=== PATIENT | male | born 1990 | race Hispanic/Latino ===

== ENCOUNTER 2018-03-18 14:24 | Emergency (ER) | payer SELFPAY ==
--- NOTE | 2018-03-18 14:34 | ED.PDOC ---
History of Present Illness - General Chief Complaint: General Stated Complaint: right flank pain Time Seen by Provider: 03/18/18 14:31 Source: patient Exam Limitations: no limitations - History of Present Illness Initial Comments: Trey Glavan 27 y/o male stated that he had sudden onset of stabbing right flank pain which had been constant about an hour ago with dark straw colored urine.Denies diarrhea,felt nauseated due to pain,no history of back injury.Denies chronic medical problem.No history of nephrolithiasis. Timing/Duration: just prior to arrival Quality: steady, stabbing Onset Location: right flank Radiation: none Activites at Onset: none Prior abdominal problems: none Sexual intercourse history: single partner Improving Factors: nothing Worsening Factors: nothing Associated Symptoms: denies symptoms Allergies/Adverse Reactions: Allergies NO KNOWN ALLERGY Allergy (Verified 03/18/18 14:35) Home Medications: Ambulatory Orders Acetamin W/Cod #3 Tab [Tylenol w/CODEINE #3] 1 ea PO Q6HRS PRN #10 tab 03/18/18 Ketorolac Tromethamine [Toradol Tabs] 10 mg PO TID #10 tab 03/18/18 Tamsulosin HCl [Flomax] 0.4 mg PO DAILY #5 cap 03/18/18 Review of Systems - Review of Systems Constitutional: States: no symptoms reported EENTM: States: no symptoms reported Respiratory: States: no symptoms reported Gastrointestinal/Abdominal: States: see HPI Genitourinary: States: see HPI All other Systems: Reviewed and Negative, No Change from Baseline Past Medical History (General) - Patient Medical History Hx Seizures: No Hx Asthma: No Surgical History: no surgical history - Social History Hx Tobacco Use: Yes Hx Physical Abuse: No Hx Emotional Abuse: No Family Medical History - Family History Mother Family History: Unknown Physical Exam - Physical Exam General Appearance: Anxious, No apparent distress, Other - in pain Eyes, Ears, Nose, Throat Exam: normal ENT inspection Neck: non-tender, full range of motion, supple Cardiovascular/Respiratory: regular rate, rhythm, no M/R/G, normal peripheral pulses Gastrointestinal/Abdominal: normal bowel sounds, non tender, soft, no organomegaly Back Exam: no vertebral tenderness, CVA tenderness (R) Extremity: non-tender, no pedal edema, no calf tenderness Neurologic: alert, oriented x 3 Progress - Progress Progress: 03/18/18 14:43 Vital Signs - 8 hr 03/18/18 14:30 Temperature 97.6 F Pulse Rate [ 81 pulse ox] Respiratory 18 Rate Blood Pressure 149/95 [left arm] O2 Sat by Pulse 100 Oximetry - Results/Orders Results/Orders: 03/18/18 16:04 Sodium Chloride 0.9% 500Ml [NS 500ml] 500 ml IVS ONCE Laboratory Results - last 24 hr 03/18/18 03/18/18 03/18/18 14:40 14:40 14:53 WBC 7.4 RBC 5.53 Hgb 15.9 Hct 47.4 MCV 85.7 MCH 28.8 MCHC 33.6 RDW 14.3 Plt Count 291 MPV 8.1 Absolute Neuts (auto) 5.20 Absolute Lymphs (auto) 1.70 Absolute Monos (auto) 0.40 Absolute Eos (auto) 0.10 Absolute Basos (auto) 0.10 Neutrophils % 69.8 Lymphocytes % 22.7 Monocytes % 4.9 Eosinophils % 1.9 Basophils % 0.7 Sodium 141 Potassium 3.3 L Chloride 103 Carbon Dioxide 25 Anion Gap 16.3 BUN 18 Creatinine 1.23 BUN/Creatinine Ratio 14.6 Random Glucose 141 H Serum Osmolality 285.5 Calcium 10.2 Urine Color Maranda Urine Appearance Turbid Urine pH 7.0 Ur Specific [place] 1.025 Urine Protein 100 H Urine Glucose (UA) Negative Urine Ketones 15 H Urine Blood Large H Urine Nitrite Negative Urine Bilirubin Negative Urine Urobilinogen 0.2 Ur Leukocyte Esterase Negative Urine RBC Tntc H Urine WBC 3-5 H Ur Epithelial Cells 1-3 Calcium Oxalate Crystal 1+ Urine Bacteria 1+ Urine Opiates Screen Urine Barbiturates Ur Phencyclidine Scrn U Amphetamin/Meth Scrn U Benzodiazepines Scrn U Cocaine Metab Screen U Cannabinoids Screen 03/18/18 14:53 WBC RBC Hgb Hct MCV MCH MCHC RDW Plt Count MPV Absolute Neuts (auto) Absolute Lymphs (auto) Absolute Monos (auto) Absolute Eos (auto) Absolute Basos (auto) Neutrophils % Lymphocytes % Monocytes % Eosinophils % Basophils % Sodium Potassium Chloride Carbon Dioxide Anion Gap BUN Creatinine BUN/Creatinine Ratio Random Glucose Serum Osmolality Calcium Urine Color Urine Appearance Urine pH Ur Specific [place] Urine Protein Urine Glucose (UA) Urine Ketones Urine Blood Urine Nitrite Urine Bilirubin Urine Urobilinogen Ur Leukocyte Esterase Urine RBC Urine WBC Ur Epithelial Cells Calcium Oxalate Crystal Urine Bacteria Urine Opiates Screen Negative Urine Barbiturates Negative Ur Phencyclidine Scrn Negative U Amphetamin/Meth Scrn Negative U Benzodiazepines Scrn Negative U Cocaine Metab Screen Negative U Cannabinoids Screen Negative - EKG/XRAY/CT CT Ordered: Yes - abd/p-2mm ureteral calculus right UVJ Departure - Departure Clinical Impression: Flank pain, acute, Right ureteral calculus Time of Disposition: 16:26 Disposition: Discharge to Home or Self Care Condition: Good Departure Forms: ED Discharge - Pt. Copy, Patient Portal Self Enrollment Instructions: DI for Kidney Stones, Kidney Stones -- Adult, Kidney Stones ( Alternative Therapy) Diet: other - increase oral fluid intake Referrals: Jerome Hartman MD [Primary Care Provider] - 1-2 Weeks Prescriptions: Acetamin W/Cod #3 Tab [Tylenol w/CODEINE #3] 1 ea PO Q6HRS PRN #10 tab PRN Reason: Pain Ketorolac Tromethamine [Toradol Tabs] 10 mg PO TID #10 tab Tamsulosin HCl [Flomax] 0.4 mg PO DAILY #5 cap Home Medications: Ambulatory Orders Acetamin W/Cod #3 Tab [Tylenol w/CODEINE #3] 1 ea PO Q6HRS PRN #10 tab 03/18/18 Ketorolac Tromethamine [Toradol Tabs] 10 mg PO TID #10 tab 03/18/18 Tamsulosin HCl [Flomax] 0.4 mg PO DAILY #5 cap 03/18/18 Additional Instructions: Return to ER as needed;follow up with primary Md 19 march 2018
[2018-03-18] MEDS: LACTATED RINGERS 1,000 ML IVS ONE (14:40)
[2018-03-18] MEDS: TAMSULOSIN 0.4 MG CAP PO ONE (14:40)
[2018-03-18] MEDS: KETOROLAC TROMETHAMINE INJ 30 MG/ML VIAL IV ONE (14:41)
[2018-03-18] MEDS: MORPHINE SULFATE INJ 10 MG/ML VIAL IV ONE ×2 (14:58→15:32)
[2018-03-18 15:00] VITALS: TEMP 97.6
[2018-03-18] MEDS: PROMETHAZINE HCL INJ 25 MG/ML VIAL IM ONE (15:00)
--- NOTE | 2018-03-18 15:06 | CT ---
EXAM DESCRIPTION: Abdoment/Pelvis w/o Contrast CLINICAL HISTORY: 27 years Male, right flank pain COMPARISON: None available. TECHNIQUE: Contiguous 3 mm axial images were obtained from the lung bases to the level of the proximal femora without the administration of intravenous or oral contrast. Sagittal and coronal reconstructions were reviewed. FINDINGS: Limited evaluation of the solid organs due to the lack of intravenous contrast. THORAX: The imaged lower thorax demonstrates no gross abnormality. LIVER: The liver demonstrates normal size and density with no intrahepatic biliary ductal dilatation. GALLBLADDER: Grossly unremarkable. PANCREAS: Appears normal with no cystic or solid lesions. SPLEEN: Normal ADRENAL GLANDS: Normal with no nodules or masses. KIDNEYS: 4 mm nonobstructive calculus is noted in the inferior pole of the left kidney. Few other hyper dense foci too small to measure identified in both kidneys most likely representing forming stones. There is mild hydroureteronephrosis of the right kidney secondary to obstruction from a 2 mm calculus in the right ureterovesical junction. The left ureter appears grossly unremarkable. STOMACH: The stomach is well-distended with no gross abnormality. SMALL BOWEL: The small bowel loops demonstrate variable degrees of distention with no abnormal dilatation or other signs to suggest bowel obstruction. LARGE BOWEL: Majority of the colon is not well-distended limiting detailed evaluation. The appendix is well-visualized and appears normal No evidence of free intraperitoneal air or fluid. RETROPERITONEUM: The abdominal aorta is nonaneurysmal with no significant atherosclerosis. The inferior vena cava is normal in size and caliber. No abnormally enlarged retroperitoneal lymph nodes are identified. URINARY BLADDER: The urinary bladder is mildly distended with no large calculi. 2 mm punctate calculus is noted in the right ureterovesical junction. The prostate gland and seminal vesicles appear normal. ADDITIONAL FINDINGS: Small fat-containing bilateral inguinal hernias are identified. BONES: No degenerative changes are identified in the visualized bones.No evidence of osteophytic or osteoblastic lesions. IMPRESSION: 1. Mild hydroureteronephrosis of the right kidney secondary to obstruction from a 2 mm calculus in the right ureterovesical junction. 2. Nonobstructive 4 mm calculus is noted in the inferior pole of the left kidney. A few other too small to measure hyperdense foci are noted in both kidneys most likely representing developing stones. This exam was performed according to our departmental dose-optimization program, which includes automated exposure control, adjustment of the mA and/or kV according to patient size and/or use of iterative reconstruction technique. Electronically signed by: Marissa Aly MD 03/18/2018 3:04 PM CDT
[2018-03-18] MEDS: HYDROcodone 7.5MG/APAP 325MG 1 EA TAB PO ONE (15:32)
[2018-03-18] MEDS: SODIUM CHLORIDE 0.9% 500ML 500 ML IVS ONE (16:10)
[2018-03-18 16:50] VITALS: BP 132/85; O2SAT 96
== END 2018-03-18 16:48 | disposition home or self-care (01) ==
LOC: ER 14:24
DX: N13.2 Hydronephrosis with renal and ureteral calculous obstruction (principal); Z87.891 Personal history of nicotine dependence
CPT/HCPCS: 36415; 74176; 80048; 80307; 81001; 85025; J1885; J2270; J2550; J7040; J7120

== ENCOUNTER 2020-09-07 15:33 | Emergency (ER) | payer SELFPAY ==
[2020-09-07] MEDS ORDERED: KETOROLAC TROMETHAMINE INJ 30 MG/ML VIAL IV ONE (16:15)
[2020-09-07] MEDS ORDERED: ONDANSETRON INJ 4 MG/2 ML VIAL IV ONE (16:15)
[2020-09-07] MEDS ORDERED: SODIUM CHLORIDE 0.9% 1000ML 1,000 ML IVS ONE (16:15)
[2020-09-07 16:18] VITALS: O2SAT 99
--- NOTE | 2020-09-07 16:19 | ED.PDOC ---
History of Present Illness - General Chief Complaint: Problem Stated Complaint: left flank pain Time Seen by Provider: 09/07/20 16:10 - History of Present Illness Initial Comments: 29 yo M pleasant and reliable historian PMH HTN HL and kidney stones PMD Dr. Ramirez presents to ED writhing in pain and retching holding emesis bag c/o left flank pain that began this am. Denies fever cough sob recent travel or contact with covid19 denies fever chills admits nausea denies vomiting diarrhea chest pain sob diaphoresis. No change in diet reports disturbed rest and blood in urine no change in bowel denies drinking or smoking no other c/o today. PPE worn-N95 surgical mask with attached face shield over N95 gloves and face shield over that Allergies/Adverse Reactions: Allergies NO KNOWN ALLERGY Allergy (Verified 09/07/20 15:57) Home Medications: Ambulatory Orders Acetamin W/Cod #3 Tab [Tylenol w/CODEINE #3] 1 ea PO Q6HRS PRN #10 tab 03/18/18 Acetaminophen [Tylenol] 650 mg PO Q6H PRN #30 tab 09/07/20 Amoxicillin & Pot Clavulanate [Augmentin Tab] 875 mg PO BID 10 Days #20 tab 09/07/20 Atorvastatin Calcium 40 mg PO BEDTIME 09/07/20 Ibuprofen 600 mg PO Q6H PRN #20 tab 09/07/20 Metoprolol Succinate [Metoprolol Succinate ER] 10 mg PO BEDTIME 09/07/20 Ondansetron Tab [Zofran Tab] 4 mg PO TID PRN 5 Days #15 tab 09/07/20 Tamsulosin HCl [Flomax] 0.4 mg PO DAILY #15 cap 09/07/20 Review of Systems - Review of Systems Constitutional: States: see HPI EENTM: States: see HPI Respiratory: States: see HPI Cardiology: States: see HPI Gastrointestinal/Abdominal: States: see HPI Genitourinary: States: see HPI Musculoskeletal: States: see HPI Skin: States: see HPI Neurological: States: see HPI Endocrine: States: see HPI All other Systems: Reviewed and Negative Past Medical History (General) - Patient Medical History Hx Seizures: No Hx Asthma: No Hx Hypertension: Yes - Vaccination History Hx Influenza Vaccination: No - Social History Hx Tobacco Use: Yes Hx Alcohol Use: Yes - occasional Hx Depression: No Hx Physical Abuse: No Hx Emotional Abuse: No Family Medical History - Family History Mother Family History: Unknown Physical Exam - Physical Exam General Appearance: No apparent distress Eye Exam: bilateral normal Ears, Nose, Throat: normal ENT inspection Neck: full range of motion Respiratory: no respiratory distress Cardiovascular/Chest: regular rate, rhythm Gastrointestinal/Abdominal: soft, other - tender left flank Rectal Exam: deferred Back Exam: CVA tenderness (L) Extremity: normal range of motion, non-tender Neurologic: no motor/sensory deficits Skin Exam: normal color Progress - Progress Progress: 09/07/20 16:21 A/P-Abdominal Pain Flank Pain-iv bolus toradol zofran cbc cmp ua ct abdomen pelvis rapid covid reassess 09/07/20 16:56 Laboratory Tests 09/07/20 09/07/20 09/07/20 16:00 16:00 16:39 WBC 11.4 H RBC 5.09 Hgb 15.1 Hct 44.1 MCV 86.6 MCH 29.7 MCHC 34.3 RDW 13.6 Plt Count 236 MPV 7.9 Absolute Neuts (auto) 8.90 H Absolute Lymphs (auto) 1.50 Absolute Monos (auto) 0.80 Absolute Eos (auto) 0.10 Absolute Basos (auto) 0.10 Neutrophils % 78.5 H Lymphocytes % 13.3 L Monocytes % 6.8 Eosinophils % 0.9 L Basophils % 0.5 Sodium 140 Potassium 3.7 Chloride 102 Carbon Dioxide 26 Anion Gap 15.7 BUN 23 H Creatinine 1.16 BUN/Creatinine Ratio 19.8 Random Glucose 104 Serum Osmolality 283.4 Calcium 9.5 Total Bilirubin 0.8 AST 22 ALT 34 Alkaline Phosphatase 89 Serum Total Protein 7.6 Albumin 4.6 Globulin 3.0 Albumin/Globulin Ratio 1.5 Urine Color Yellow Urine Appearance Cloudy Urine pH 5.5 Ur Specific [place] >= 1.030 Urine Protein 30 Urine Glucose (UA) Negative Urine Ketones Negative Urine Blood Large H Urine Nitrite Negative Urine Bilirubin Small H Urine Urobilinogen 0.2 Ur Leukocyte Esterase Negative Urine RBC Tntc H Urine WBC 0-1 Ur Epithelial Cells 0-1 Calcium Oxalate Crystal 1+ Amorphous Sediment 1+ Urine Bacteria Rare Urine Mucus Moderate Hematuria 09/07/20 17:37 EXAM: XR Chest, 1 View CLINICAL HISTORY: abdominal pain TECHNIQUE: Frontal view of the chest. COMPARISON: No relevant prior studies available. FINDINGS: Lungs: No consolidation. Symmetrical vascular pattern. Pleural space: No pneumothorax or pleural effusion. Heart: Normal cardiac size and configuration. Mediastinum: No abnormality noted. Bones/joints: No osseous destruction or sclerosis noted. Upper abdomen: No free air noted under the diaphragms. IMPRESSION: No acute findings in the chest. 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 Sagittal and coronal reformatted images were created and reviewed. This CT exam was performed using one or more of the following dose reduction techniques: automated exposure control, adjustment of the mA and/or kV according to patient size, and/or use of iterative reconstruction technique. COMPARISON: March 18, 2018 FINDINGS: Lung bases: Unremarkable. No mass. No consolidation. ABDOMEN: Liver: Unremarkable. Gallbladder and bile ducts: Unremarkable. No calcified stones. No ductal dilation. Pancreas: Unremarkable. No ductal dilation. Spleen: Unremarkable. No splenomegaly. Adrenals: Unremarkable. No mass. Kidneys and ureters: 4.5 mm calculus at the left distal ureter resulting in mild to moderate left hydroureteronephrosis. No nephrolithiasis or hydronephrosis on the right. Stomach and bowel: Unremarkable. No obstruction. No mucosal thickening. PELVIS: Appendix: No findings to suggest acute appendicitis. Bladder: Unremarkable. No stones. Reproductive: Unremarkable as visualized. ABDOMEN and PELVIS: Intraperitoneal space: Unremarkable. No free air. No significant fluid collection. Bones/joints: No acute fracture. No dislocation. Soft tissues: Unremarkable. Vasculature: Unremarkable. No abdominal aortic aneurysm. Lymph nodes: Unremarkable. No enlarged lymph nodes. IMPRESSION: 4.5 mm calculus at the left distal ureter resulting in mild to moderate left hydroureteronephrosis. 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 Copy, Patient Portal Self Enrollment Referrals: Juainto Mcconnell MD [Primary Care Provider] - 1-2 Days Prescriptions: Amoxicillin & Pot Clavulanate [Augmentin Tab] 875 mg PO BID 10 Days #20 tab Tamsulosin HCl [Flomax] 0.4 mg PO DAILY #15 cap Ibuprofen 600 mg PO Q6H PRN #20 tab PRN Reason: Pain Acetaminophen [Tylenol] 650 mg PO Q6H PRN #30 tab PRN Reason: Pain Ondansetron Tab [Zofran Tab] 4 mg PO TID PRN 5 Days #15 tab PRN Reason: Nausea Home Medications: Ambulatory Orders Acetamin W/Cod #3 Tab [Tylenol w/CODEINE #3] 1 ea PO Q6HRS PRN #10 tab 03/18/18 Acetaminophen [Tylenol] 650 mg PO Q6H PRN #30 tab 09/07/20 Amoxicillin & Pot Clavulanate [Augmentin Tab] 875 mg PO BID 10 Days #20 tab 09/07/20 Atorvastatin Calcium 40 mg PO BEDTIME 09/07/20 Ibuprofen 600 mg PO Q6H PRN #20 tab 09/07/20 Metoprolol Succinate [Metoprolol Succinate ER] 10 mg PO BEDTIME 09/07/20 Ondansetron Tab [Zofran Tab] 4 mg PO TID PRN 5 Days #15 tab 09/07/20 Tamsulosin HCl [Flomax] 0.4 mg PO DAILY #15 cap 09/07/20
--- NOTE | 2020-09-07 16:59 | RAD ---
EXAM: XR Chest, 1 View CLINICAL HISTORY: abdominal pain TECHNIQUE: Frontal view of the chest. COMPARISON: No relevant prior studies available. FINDINGS: Lungs: No consolidation. Symmetrical vascular pattern. Pleural space: No pneumothorax or pleural effusion. Heart: Normal cardiac size and configuration. Mediastinum: No abnormality noted. Bones/joints: No osseous destruction or sclerosis noted. Upper abdomen: No free air noted under the diaphragms. IMPRESSION: No acute findings in the chest. 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
--- NOTE | 2020-09-07 17:03 | CT ---
EXAM: CT Abdomen and Pelvis Without Intravenous Contrast CLINICAL HISTORY: The patient is 29 years old and is Male; r/o stone TECHNIQUE: Axial computed tomography images of the abdomen and pelvis without intravenous contrast. Sagittal and coronal reformatted images were created and reviewed. This CT exam was performed using one or more of the following dose reduction techniques: automated exposure control, adjustment of the mA and/or kV according to patient size, and/or use of iterative reconstruction technique. COMPARISON: March 18, 2018 FINDINGS: Lung bases: Unremarkable. No mass. No consolidation. ABDOMEN: Liver: Unremarkable. Gallbladder and bile ducts: Unremarkable. No calcified stones. No ductal dilation. Pancreas: Unremarkable. No ductal dilation. Spleen: Unremarkable. No splenomegaly. Adrenals: Unremarkable. No mass. Kidneys and ureters: 4.5 mm calculus at the left distal ureter resulting in mild to moderate left hydroureteronephrosis. No nephrolithiasis or hydronephrosis on the right. Stomach and bowel: Unremarkable. No obstruction. No mucosal thickening. PELVIS: Appendix: No findings to suggest acute appendicitis. Bladder: Unremarkable. No stones. Reproductive: Unremarkable as visualized. ABDOMEN and PELVIS: Intraperitoneal space: Unremarkable. No free air. No significant fluid collection. Bones/joints: No acute fracture. No dislocation. Soft tissues: Unremarkable. Vasculature: Unremarkable. No abdominal aortic aneurysm. Lymph nodes: Unremarkable. No enlarged lymph nodes. IMPRESSION: 4.5 mm calculus at the left distal ureter resulting in mild to moderate left hydroureteronephrosis. 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
[2020-09-07 17:55] VITALS: BP 125/84; TEMP 97.8
== END 2020-09-07 17:52 | disposition home or self-care (01) ==
LOC: ER 15:33
DX: N13.2 Hydronephrosis with renal and ureteral calculous obstruction (principal); I10 Essential (primary) hypertension; E78.00 Pure hypercholesterolemia, unspecified; Z87.891 Personal history of nicotine dependence; Z79.899 Other long term (current) drug therapy; Z87.440 Personal history of urinary (tract) infections
CPT/HCPCS: 36415; 71045; 74176; 80053; 81001; 85025; J1885; J2405; J7030

== ENCOUNTER 2020-11-06 18:21 | Emergency (ER) | payer BC ==
[2020-11-06 18:35] VITALS: TEMP 97.7
[2020-11-06] MEDS ORDERED: TAMSULOSIN 0.4 MG CAP PO ONE (18:45)
[2020-11-06] MEDS ORDERED: KETOROLAC TROMETHAMINE INJ 30 MG/ML VIAL IV ONE (18:45)
[2020-11-06] MEDS ORDERED: ONDANSETRON INJ 4 MG/2 ML VIAL IV ONE (18:45)
[2020-11-06] MEDS ORDERED: SOD POLYSTYRENE SULFONATE 15 GM/60 ML BTTL PO ONE (18:49)
[2020-11-06] MEDS ORDERED: DEXTROSE 50% 25 GM/50 ML SYG IV ONE (18:49)
[2020-11-06] MEDS ORDERED: INSULIN, REG.(HUMAN) 100 U/ML VIAL IV ONE (18:49)
--- NOTE | 2020-11-06 19:27 | CT ---
PROCEDURE: CT Abdomen/Pelvis w/o Contrast CLINICAL HISTORY: 30 years Male stone protocol TECHNIQUE: Contiguous axial images obtained through the abdomen and pelvis without IV contrast. Coronal and sagittal reformatted images provided. This CT exam was performed according to our departmental dose-optimization program, which includes one or more of the following dose reduction techniques: automated exposure control, adjustment of the mA and/or kV according to patient size, and/or use of iterative reconstruction technique. COMPARISON: No prior exams provided for comparison. FINDINGS: There is moderate left hydroureteronephrosis and mild perinephric stranding due to a 7 mm calculus at the distal margin of the left vesicoureteral junction. No other renal, ureteral, or bladder calculi. Mild inflammation of the urinary bladder. The lung bases, unenhanced liver, biliary tree, gallbladder, pancreas, spleen, adrenal glands, and right kidney are normal. There is no bowel inflammation, obstruction, free intraperitoneal air, or ascites. The appendix is normal. There are no aggressive osseous lesions. IMPRESSION: Moderate left hydroureteronephrosis due to a 7 mm calculus at the distal margin of the left vesicoureteral junction. Inflamed urinary bladder, correlate with urinalysis. No other acute abdominal or pelvic findings. Electronically signed by: Helena Loza MD 11/06/2020 7:25 PM [employer]
--- NOTE | 2020-11-06 19:30 | ED.PDOC ---
History of Present Illness - General Chief Complaint: Problem Stated Complaint: left flank pain Time Seen by Provider: 11/06/20 18:42 Source: patient - History of Present Illness Initial Comments: LEFT GROIN PAIN RADIATING TO HIS BACK, SIMILAR TO PRIOR PAIN ASSOCIATED WITH KIDNEY STONES, TWO PRIOR URETER STONES DOCUMENTED ON PRIOR VISITS HERE. PAIN ASSOCIATED WITH NAUSEA. Timing/Duration: this morning - ABOUT 0400 Quality: severe Activites at Onset: none Prior abdominal problems: none Sexual intercourse history: not active Improving Factors: nothing Worsening Factors: nothing Allergies/Adverse Reactions: Allergies NO KNOWN ALLERGY Allergy (Verified 09/07/20 15:57) Home Medications: Ambulatory Orders Acetamin W/Cod #3 Tab [Tylenol w/CODEINE #3] 1 ea PO Q6HRS PRN #10 tab 03/18/18 Atorvastatin Calcium 40 mg PO BEDTIME 09/07/20 Metoprolol Succinate [Metoprolol Succinate ER] 10 mg PO BEDTIME 09/07/20 Ketorolac Tromethamine [Toradol Tabs] 10 mg PO Q4H PRN #15 tab 11/06/20 Ondansetron Odt [Zofran ODT] 8 mg PO Q6H PRN #10 tab 11/06/20 Tamsulosin HCl [Flomax] 0.4 mg PO DAILY #14 cap 11/06/20 Tramadol HCl [Ultram] 50 mg PO Q4H PRN 7 Days #20 tab 11/06/20 Review of Systems - Review of Systems Constitutional: States: no symptoms reported Respiratory: States: no symptoms reported Cardiology: States: no symptoms reported Gastrointestinal/Abdominal: States: see HPI Genitourinary: States: no symptoms reported Past Medical History (General) - Patient Medical History Hx Seizures: No Hx Stroke: No Hx Asthma: No Hx Congestive Heart Failure: No Hx Hypertension: Yes Hx Diabetes: No Surgical History: no surgical history - Vaccination History Hx Influenza Vaccination: Yes - Social History Hx Tobacco Use: Yes Hx Alcohol Use: Yes - occasional Hx Depression: No Hx Physical Abuse: No Hx Emotional Abuse: No Family Medical History - Family History Mother Family History: Unknown Physical Exam - Physical Exam General Appearance: Alert, Obvious distress, Restless, Well Developed, Well Groomed, Well Hydrated, Well Nourished Eyes, Ears, Nose, Throat Exam: PERRL/EOMI Neck: non-tender Cardiovascular/Respiratory: regular rate, rhythm, normal peripheral pulses, no JVD, normal breath sounds, no respiratory distress Gastrointestinal/Abdominal: normal bowel sounds, non tender, soft, no organomegaly Neurologic: alert, normal mood/affect, oriented x 3 Skin Exam: normal color, warm/dry Lymphatic: no adenopathy Progress - Progress Progress: 11/06/20 20:35 PATIENT FEELING MUCH BETTER AT TIME OF DISCHARGE. PAIN 10/23, STATES UNDERSTANDS IMPORTANCE OF UROLOGIC FOLLOW UP TO PREVENT RENAL INJURY FROM THESE RECURRENT KIDNEY STONES. HE MAY WELL NEED LITHOTRIPSY TO PASS CURRENT STONE WELL. Departure - Departure Clinical Impression: Ureteral stone with hydronephrosis Time of Disposition: 20:29 Disposition: Discharge to Home or Self Care Condition: Good Departure Forms: ED Discharge - Pt. Copy, Patient Portal Self Enrollment Instructions: Renal Colic, Kidney Stone Diet Referrals: Juanito Mcconnell MD [Primary Care Provider] - 1-2 Weeks Prescriptions: Tamsulosin HCl [Flomax] 0.4 mg PO DAILY #14 cap Ketorolac Tromethamine [Toradol Tabs] 10 mg PO Q4H PRN #15 tab PRN Reason: Pain Tramadol HCl [Ultram] 50 mg PO Q4H PRN 7 Days #20 tab PRN Reason: Pain Ondansetron Odt [Zofran ODT] 8 mg PO Q6H PRN #10 tab PRN Reason: Nausea Home Medications: Ambulatory Orders Acetamin W/Cod #3 Tab [Tylenol w/CODEINE #3] 1 ea PO Q6HRS PRN #10 tab 03/18/18 Atorvastatin Calcium 40 mg PO BEDTIME 09/07/20 Metoprolol Succinate [Metoprolol Succinate ER] 10 mg PO BEDTIME 09/07/20 Ketorolac Tromethamine [Toradol Tabs] 10 mg PO Q4H PRN #15 tab 11/06/20 Ondansetron Odt [Zofran ODT] 8 mg PO Q6H PRN #10 tab 11/06/20 Tamsulosin HCl [Flomax] 0.4 mg PO DAILY #14 cap 11/06/20 Tramadol HCl [Ultram] 50 mg PO Q4H PRN 7 Days #20 tab 11/06/20 Additional Instructions: CALL TOMORROW AND MAKE APPOINTMENT TO SEE UROLOGIST GERALD. RETURN TO ER FOR UNCONTROLLED PAIN.
[2020-11-06] MEDS ORDERED: HYDROmorphone HCL INJ 2 MG/ML VIAL IV ONE ×2 (19:32→21:04)
[2020-11-06] MEDS ORDERED: SODIUM CHLORIDE 0.9% 1000ML 2,000 ML IVS ONE (19:46)
[2020-11-06] MEDS ORDERED: SODIUM CHLORIDE 0.9% 1000ML 2,000 ML ONE (19:46)
[2020-11-06] MEDS ORDERED: ONDANSETRON ODT (ER DISP) 8 MG TAB PO ONE ×2 (20:28→20:53)
[2020-11-06] MEDS ORDERED: traMADol HCL 50 MG (ER DISP) # 6 TABS PO SCH (20:30)
[2020-11-06 21:35] VITALS: BP 144/93; O2SAT 94
== END 2020-11-06 21:29 | disposition home or self-care (01) ==
LOC: ER 18:21
DX: N13.2 Hydronephrosis with renal and ureteral calculous obstruction (principal); I10 Essential (primary) hypertension; Z87.442 Personal history of urinary calculi; Z79.899 Other long term (current) drug therapy; Z87.891 Personal history of nicotine dependence
CPT/HCPCS: 74176; 80053; 81001; 85025; J1170; J1885; J2405; J7030